=== PATIENT | female | born 1950 | race Caucasian/White ===

== ENCOUNTER → 2016-07-21 | Outpatient (CLI) | payer OTHER ==
--- NOTE | 2016-07-21 22:03 | DI ---
MRI THORACIC SPINE SCAN, 07/21/2016 9:25 AM: Clinical History: Thoracic spine pain. Previous Exam: None. Technique: Sagittal T1 and T2 weighted and STIR scans are supplemented with an axial T1 and T2 weight ed scans between the mid body of C7 and the T12-L1 disc space. The thoracic vertebral bodies are of normal height, size, and signal pattern. There is decreased sign al intensity on the T1-weighted scans and increased signal intensity on the sagittal STIR scans in th e body of L1 consistent with bone edema. The axial scans terminate before the increased signal intens ity is seen in the L1 vertebral body. The thoracic cord and the conus medullaris are normal. There is disc space narrowing at T6-7 and the remaining thoracic disc spaces are of normal height. All thorac ic disc spaces show desiccation change. The disc spaces from C7-T1 through T5-6 are normal. T6-7 has a circumferentially bulging but not randall iated disc without canal or neural foraminal stenosis. T7-8 has a midline small focal disc herniation that is displacing the left side of the cord slightly posteriorly but there is no canal or neural fo raminal stenosis. T8-9 disc space is normal. T9-10 has a prominent central bulging but not herniated disc. There is no canal or neural foraminal stenosis. T10-11 and T11-12 disc spaces are normal. T12-L 1 has a very minimal bulging but not herniated disc without canal or neural foraminal stenosis. There are no intradural extramedullary lesions. Readin. There is a small midline focal disc herniation at T7-8 that is displacing the left side of the co rd slightly posteriorly. However, there is no canal or neural foraminal stenosis. 2. There are bulging but not herniated discs without canal or neural foraminal stenosis at T6-7, T9- 10, and T12-L1. 3. The disc spaces from C7-T1 through T5-6, T8-9, T10-11, and T12-L1 are normal.
== END ==
LOC: MRI 09:19
PROVIDERS: ATTEND Orthopaedic Surgery
DX: M54.6 Pain in thoracic spine (principal); M51.24 Other intervertebral disc displacement, thoracic region; M47.814 Spondylosis without myelopathy or radiculopathy, thoracic region
CPT/HCPCS: 72146

== ENCOUNTER → 2016-10-16 | Outpatient (CLI) | payer OTHER ==
[2016-10-16 07:32] LABS: BASOPHILS # (AUTO) 0.06 10*3/UL; BASOPHILS % (AUTO) 0.7 % (0-1); EOSINOPHILS % (AUTO) 4.9 % (0-8); HEMATOCRIT 47.8 % (37.0-47.0); HEMOGLOBIN 15.9 g/dL (12.0-16.0); MEAN CORPUSCULAR HEMOGLOBIN 28.5 PG (27-31); MEAN CORPUSCULAR HGB CONC 33.3 g/dL (33-37); MEAN CORPUSCULAR VOLUME 85.7 FL (81-99); MEAN PLATELET VOLUME 10.9 FL (7.4-12.2); MONOCYTES # (AUTO) 1.12 10*3/UL (0.3-0.8); MONOCYTES % (AUTO) 13.7 % (5-15); NEUTROPHILS # (AUTO) 4.26 10*3/UL; NEUTROPHILS % (AUTO) 52.3 % (50-80); RED BLOOD COUNT 5.58 10^6/uL (4.20-5.40)
[2016-10-16 07:33] LABS: PLATELET MORPHOLOGY COMMENT NORMAL MORPHOLOGY (NORM); RBC MORPHOLOGY COMMENT NORMAL MORPHOLOGY (NORM); WBC MORPHOLOGY COMMENT NORMAL MORPHOLOGY (NORM)
[2016-10-16 07:40] LABS: BUN/CREATININE RATIO 26.84 (6-20); SERUM ALBUMIN 4.3 g/dL (3.5-4.8)
== END ==
LOC: LAB 07:09
PROVIDERS: ATTEND Orthopaedic Surgery
DX: M54.2 Cervicalgia (principal)
CPT/HCPCS: 36415; 80053; 85025; 85610; 85730; 87641

== ENCOUNTER → 2016-10-23 | Outpatient (CLI) | payer OTHER ==
--- NOTE | 2016-10-23 09:39 | EKG ---
[address] [address] Measurements Intervals [place] Rate: 63 P: 55 IA: 196 QRS: 68 QRSD: 158 T: 15 QT: 440 QTc: 447 Interpretive Statements SINUS RHYTHM POSSIBLE LEFT ATRIAL ENLARGEMENT [-0.1mV P WAVE IN V1/V2] RIGHT BUNDLE BRANCH BLOCK [120+ ms QRS DURATION, UPRIGHT V1, 40+ ms S IN I/aVL/V4/V5/V6] Compared to ECG 04/21/2016 11:23:32 Indeterminate axis no longer present Electronically Signed On 10-23-16 13:26:17 MDT by Ajay Higginbotham MD [email or web address]
== END ==
LOC: EKG 09:23
PROVIDERS: ATTEND Orthopaedic Surgery
DX: M54.2 Cervicalgia (principal); I45.10 Unspecified right bundle-branch block
CPT/HCPCS: 93005; 93010

== ENCOUNTER → 2016-12-26 | Outpatient (CLI) | payer OTHER ==
[2016-12-26 07:43] LABS: HEMATOCRIT 41.6 % (37.0-47.0); HEMOGLOBIN 14.8 g/dL (12.0-16.0); MEAN CORPUSCULAR HEMOGLOBIN 30.8 PG (27-31); MEAN CORPUSCULAR HGB CONC 35.6 g/dL (33-37); MEAN CORPUSCULAR VOLUME 86.7 FL (81-99); MEAN PLATELET VOLUME 10.6 FL (7.4-12.2); RED BLOOD COUNT 4.8 10^6/uL (4.20-5.40)
[2016-12-26 07:57] LABS: BUN/CREATININE RATIO 19.16 (6-20); CALCIUM 9.5 mg/dL (8.7-10.7)
[2016-12-26 11:33] LABS: BILIRUBIN,URINE NEGATIVE (NEG); CLARITY,URINE CLOUDY (CLEAR); COLOR,URINE YELLOW; GLUCOSE, URINE (UA) NEGATIVE (NEG); NITRATE,URINE POSITIVE (NEG); OCCULT BLOOD,URINE SMALL (NEG); PROTEIN,URINE 100 mg/dl (NEG); UROBILINOGEN,URINE 0.2 mg/dL (0.2)
[2016-12-26 12:04] LABS: BACTERIA,URINE MANY; URINE SAMPLE TYPE CLEAN CATCH URINE; WBC,URINE 50-60
== END ==
LOC: LAB 07:24
PROVIDERS: ATTEND Internal Medicine Nephrology
DX: I12.9 Hypertensive chronic kidney disease with stage 1 through stage 4 chronic kidney disease, or unspecified chronic kidney disease (principal); N18.3 Chronic kidney disease, stage 3 (moderate); D63.1 Anemia in chronic kidney disease; N25.81 Secondary hyperparathyroidism of renal origin; R82.99 Other abnormal findings in urine
CPT/HCPCS: 36415; 80069; 81001; 82565; 83970; 84156; 85027; 87077; 87088; 87186